=== PATIENT | male | born 1980 | race Two or more races ===

== ENCOUNTER 2017-11-29 00:02 | Emergency (ER) | payer SELFPAY ==
[~2017-11-29] VITALS: Ht 177.8 cm; Wt 72.1 kg
[2017-11-29 00:14] VITALS: BP 155/89
[2017-11-29] MEDS ORDERED: BusPIRone 5mg Tab ORAL ONE (00:30)
[2017-11-29] MEDS ORDERED: BUSPAR10 MG ORAL (00:30)
--- NOTE | 2017-11-29 00:31 | Emergency Room Report ---
History of Present Illness General Chief Complaint: Behavioral Complaint Source: Patient Present Illness HPI Is a 37-year-old male who said he has a history anxiety. He presents with chief complaint of anxiety. Onset today. He said worse with stress and alcohol. This occurred about twice a year. No fever chills but no nausea no vomiting. No palpitation. No chest pain. No suicidal thoughts or homicidal thought. Allergies: Coded Allergies: No Known Allergies (Unverified , 11/29/17) Patient History Past Medical History: see triage record, old chart reviewed, psych hx Past Surgical History: none Pertinent Family History: none Social History: Reports: alcohol use - social Immunizations: other Reviewed Nursing Documentation: PMH: Agreed; PSxH: Agreed Nursing Documentation-PMH Past Medical History: No Stated History Review of Systems Eye: Denies: eye pain, blurred vision ENT: Denies: ear pain, nose congestion, throat swelling Respiratory: Denies: cough, shortness of breath Cardiovascular: Denies: chest pain, palpitations Gastrointestinal: Denies: abdominal pain, diarrhea, nausea, vomiting Musculoskeletal: Denies: back pain, joint pain Skin: Denies: rash Neurological: Denies: headache, numbness Endocrine: Denies: increased thirst, increased urine Hematologic/Lymphatic: Denies: easy bruising All Other Systems: negative except mentioned in HPI Physical Exam Vital Signs Date Time Temp Pulse Resp B/P (MAP) Pulse Ox O2 Delivery O2 Flow Rate FiO2 11/29/17 00:06 98.4 84 18 155/89 98 Room Air 98.4 vitals with high blood pressure Sp02 EP Interpretation: reviewed, normal General Appearance: well appearing, no apparent distress, alert Head: normocephalic, atraumatic Eyes: bilateral eye PERRL, bilateral eye EOMI ENT: hearing grossly normal, normal pharynx Neck: full range of motion, supple, no meningismus Respiratory: chest non-tender, lungs clear, normal breath sounds Cardiovascular #1: regular rate, rhythm, no murmur Gastrointestinal: normal bowel sounds, non tender, no mass, no organomegaly, no bruit, non-distended Musculoskeletal: back normal, gait/station normal, normal range of motion Psychiatric: mood/affect normal Skin: warm/dry Medical Decision Making Diagnostic Impression: Primary Impression: Anxiety ER Course Patient presents with chief complaint of anxiety. He appear to be very calm. No evidence of suicidal thoughts homicidal thought. No criteria for 5150. We' ll discharge home. Last Vital Signs Date Time Temp Pulse Resp B/P (MAP) Pulse Ox O2 Delivery O2 Flow Rate FiO2 11/29/17 00:14 98.4 84 18 155/89 98 Room Air 98.4 Status: unchanged Disposition: HOME, SELF-CARE Condition: Stable Scripts Buspirone Hcl* (BUSPAR*) 10 Mg Tablet 10 MG ORAL THREE TIMES A DAY, #15 TAB 0 Refills Prov: ROSCEO VILLAR M.D. 11/29/17 Additional Instructions: Follow-up with your doctor within 7 days. You may need a referral to see a psychologist or psychiatrist. Return if symptom worsen. ROSCOE VILLAR M.D. Nov 29, 2017 00:31
[2017-11-29 00:37] VITALS: BP 155/89
== END 2017-11-29 00:40 | disposition home or self-care (01) ==
LOC: EMR 00:31
DX: F41.9 Anxiety disorder, unspecified (principal)
CPT/HCPCS: 99283